=== PATIENT | male | born 1955 | race Caucasian/White ===

== ENCOUNTER 2019-08-31 08:00 | Emergency (ER) | payer OTHER ==
[2019-08-31] MEDS ORDERED: Albuterol/Ipratropium 3.0-0.5 MG/3 ML Neb Soln NEB ONE (08:50)
[2019-08-31 08:56] LABS: ANION GAP 12.2 mmol/L (5-15); CHLORIDE,CL 106 mmol/L (98-115); SODIUM,NA 143 mmol/L (136-145)
--- NOTE | 2019-08-31 08:59 | EDM.PDOC ---
ED HPI GENERAL MEDICAL PROBLEM - General Chief Complaint: Neuro Symptoms/Deficits Stated Complaint: dizzy Time Seen by Provider: 08/31/19 08:50 Source of Information: Reports: Patient History Limitations: Reports: No Limitations - History of Present Illness INITIAL COMMENTS - FREE TEXT/NARRATIVE: Patient is a 63-year-old gentleman who presents to the emergency department via private vehicle for complaint of dizziness. Patient states while having breakfast at local restaurant, had a coughing episode, became dizzy with tunnel vision and felt sweaty. Symptoms lasted approximately 15 minutes. Friends were with him and convinced him to come to the ER. Upon presentation, symptoms completely resolved, and patient states that he feels normal. Patient states he 's had episodes like this previously with coughing fits. Patient does have severe COPD and smokes one pack of cigarettes per day. Patient denies chest pain, nausea, vomiting, abdominal pain, headache, any head injury, or fever. Onset: Sudden Duration: Minutes:, Resolved Prior to Arrival Location: Reports: Head Quality: Reports: Other (Dizzy) Severity: Mild Improves with: Reports: Other (Spontaneously) Worsens with: Reports: None Context: Reports: Other (While at rest) Associated Symptoms: Reports: No Other Symptoms - Related Data Allergies Allergy/AdvReac Type Severity Reaction Status Date / Time No Known Allergies Allergy Verified 09/22/14 09:07 Home Meds: Home Meds Loratadine [Claritin] 10 mg PO QAM 08/31/19 [History] Naproxen Sodium [Aleve] 440 mg PO QAM 08/31/19 [History] Umeclidinium Brm/Vilanterol Tr [Anoro Ellipta 62.5-25 MCG] 1 puff INH QA [History] Social & Family History - Tobacco Use Smoking Status *Q: Current Every Day Smoker Years of Tobacco use: 40 Packs/Tins Daily: 1 - Caffeine Use Caffeine Use: Reports: Coffee, Soda Other Caffeine Use: 3 diet cokes per day - Recreational Drug Use Recreational Drug Use: No ED ROS GENERAL - Review of Systems Review Of Systems: Comprehensive ROS is negative, except as noted in HPI. Constitutional: Reports: No Symptoms HEENT: Reports: No Symptoms Respiratory: Reports: Shortness of Breath (Of chronic nature) Cardiovascular: Reports: Dyspnea on Exertion (Of chronic nature), Lightheadedness. Denies: Chest Pain, Palpitations, Syncope Endocrine: Reports: No Symptoms GI/Abdominal: Reports: No Symptoms : Reports: No Symptoms Musculoskeletal: Reports: Neck Pain (Chronic posterior neck pain) Skin: Reports: No Symptoms Neurological: Reports: Dizziness. Denies: Headache, Numbness, Paresthesia, Seizure, Syncope, Tingling, Trouble Speaking, Difficulty Walking, Weakness, Change in Speech, Gait Disturbance Psychiatric: Reports: No Symptoms Hematologic/Lymphatic: Reports: No Symptoms Immunologic: Reports: No Symptoms ED EXAM, GENERAL - Physical Exam Exam: See Below Exam Limited By: No Limitations General Appearance: Alert, WD/WN, No Apparent Distress Eye Exam: Bilateral Eye: Normal Inspection Ears: Normal External Exam, Normal Canal, Normal TMs Nose: Normal Inspection, Normal Mucosa, No Blood Throat/Mouth: Normal Inspection, Normal Oropharynx, No Airway Compromise Head: Atraumatic, Normocephalic Neck: Normal Inspection, Supple, Full Range of Motion, Tender Lateral (Of chronic nature). No: Lymphadenopathy (L), Lymphadenopathy (R) Respiratory/Chest: No Respiratory Distress EKG INTERPRETATION EKG Date: 08/31/19 Time: 08:30 Rhythm: NSR Rate (Beats/Min): 68 [place]: Normal P-Wave: Present QRS: Normal ST-T: Normal QT: Normal Comparison: NA - No Prior EKG Course - Vital Signs Last Recorded V/S: Last Vital Signs Temp 96.6 F 08/31/19 08:07 Pulse 88 08/31/19 08:35 Resp 18 08/31/19 08:35 BP 111/63 08/31/19 08:35 Pulse Ox 93 L 08/31/19 08:07 Orthostatic Blood Pressure [ 103/65 Standing] Orthostatic Blood Pressure [ 96/60 Sitting] Orthostatic Blood Pressure [ 107/54 Supine] - Orders/Labs/Meds Orders: Active Orders 24 hr Category Date Time Status EKG Documentation Completion [RC] ASDIRECTED Care 08/31/19 08:32 Active RT Aerosol Therapy [RC] ASDIRECTED Care 08/31/19 08:51 Ordered EKG 12 Lead [EK] Routine Ther 08/31/19 08:32 Ordered Labs: Laboratory Tests 08/31/19 08/31/19 Range/Units 08:30 08:30 WBC 7.89 (5.00-10.00) 10^3/uL RBC 4.16 L (4.50-6.00) 10^6/uL Hgb 12.8 L D (13.0-17.0) g/dL Hct 39.3 L (40.0-52.0) % MCV 94.5 H (82.0-92.0) fL MCH 30.8 (27.0-31.0) pg MCHC 32.6 (32.0-36.0) g/dL RDW 13.1 (11.5-14.5) % Plt Count 351 (150-400) 10^3/uL MPV 9.1 (7.4-10.4) fL Immature Gran % (Auto) 0.1 (0.0-5.0) % Neut % (Auto) 74.4 H (50.0-70.0) % Lymph % (Auto) 15.2 L (20.0-40.0) % [place] % (Auto) 5.3 (2.0-8.0) % Eos % (Auto) 4.2 H (1.0-3.0) % Baso % (Auto) 0.8 (0.0-1.0) % Immature Gran # (Auto) 0.01 (0.00-0.50) 10^3/uL Neut # (Auto) 5.87 (2.50-7.00) 10^3/uL Lymph # (Auto) 1.20 (1.00-4.00) 10^3/uL [place] # (Auto) 0.42 (0.10-0.80) 10^3/uL Eos # (Auto) 0.33 H (0.10-0.30) 10^3/uL Baso # (Auto) 0.06 (0.00-0.10) 10^3/uL Sodium 143 (136-145) mmol/L Potassium 3.3 (3.3-5.3) mmol/L Chloride 106 (98-115) mmol/L Carbon Dioxide 28.1 (21.0-32.0) mmol/L Anion Gap 12.2 (5-15) mmol/L BUN 16 (6-25) mg/dL Creatinine 1.28 H (0.51-1.17) mg/dL Est Cr Clr Drug Dosing 59.85 mL/min Estimated GFR (MDRD) 57 mL/min Glucose 137 H (75 - 99) mg/dL Calcium 8.9 (8.7-10.3) mg/dL Total Bilirubin 0.4 (0.2-1.0) mg/dL AST 28 (15-37) U/L ALT 22 (12-78) U/L Alkaline Phosphatase 78 (46-116) IU/L Troponin I < 0.04 (0.00-0.070) ng/mL Total Protein 6.4 (6.4-8.2) g/dL Albumin 2.85 L (3.00-4.80) g/dL Meds: Medications Discontinued Medications Generic Name Dose Route Start Last Admin Trade Name Freq PRN Reason Stop Dose Admin Albuterol/Ipratropium 3 ml 08/31/19 08:50 08/31/19 08:53 Duoneb 3.0-0.5 Mg/3 Ml NEB 08/31/19 08:51 3 ml ONETIME ONE Administration - Radiology Interpretation Free Text/Narrative:: Chest x-ray shows chronic hyperinflation consistent with COPD, no acute cardiopulmonary process - Re-Assessments/Exams Free Text/Narrative Re-Assessment/Exam: 08/31/19 09:11 Patient afebrile, vital signs stable, sat 93% on room air. Feels much better, no dizziness, chest pain, headache, while in ER. EKG and troponin negative. Patient be given prescription for MDI inhaler, albuterol Atrovent on follow-up with Dr. Davis in 2-3 days. 08/31/19 09:15 Departure - Departure Time of Disposition: 09:14 Disposition: Home, Self-Care 01 Condition: Good Clinical Impression: COPD (chronic obstructive pulmonary disease) Qualifiers: COPD type: COPD with acute exacerbation Qualified Code(s): J44.1 - Chronic obstructive pulmonary disease with (acute) exacerbation - Discharge Information Instructions: Chronic Obstructive Pulmonary Disease Exacerbation, [id number] , Cough, Adult, [id number], How to Use a Metered Dose Inhaler Referrals: Shannen Major MD [Primary Care Provider] - Forms: ED Department Discharge Additional Instructions: Follow-up with Dr. Davis in 2-3 days. Return to emergency department sooner if symptoms continue or worsen. - My Orders Last 24 Hours: My Active Orders 08/31/19 08:32 EKG Documentation Completion [RC] ASDIRECTED EKG 12 Lead [EK] Routine 08/31/19 08:51 RT Aerosol Therapy [RC] ASDIRECTED - Assessment/Plan Last 24 Hours: My Active Orders 08/31/19 08:32 EKG Documentation Completion [RC] ASDIRECTED EKG 12 Lead [EK] Routine 08/31/19 08:51 RT Aerosol Therapy [RC] ASDIRECTED Assessment:: COPD Plan: Follow-up at clinic
--- NOTE | 2019-08-31 09:03 | CR ---
[id number] RAD/RAD Chest PA or AP 1V EXAM: RAD Chest PA or AP 1V INDICATION: COUGH, RACING HEART. COMPARISON: November 02, 2018. DISCUSSION: Cardiomediastinal silhouette is normal in size and contour. Chronic obstructive pulmonary disease. No infiltrate, effusion, pneumothorax, or edema. IMPRESSION: No acute findings. Other findings are described above. Obinna Breaux MD 08/31/19 0902 Thank you for allowing us to participate in the care of your patient.
== END 2019-08-31 09:30 | disposition home or self-care (01) ==
LOC: KA.ED 08:00
DX: J44.1 Chronic obstructive pulmonary disease with (acute) exacerbation (principal); F17.210 Nicotine dependence, cigarettes, uncomplicated
CPT/HCPCS: 36415; 71045; 80053; 84484; 85025; 93005; 99284-25; J7620-GY

== ENCOUNTER 2020-07-04 16:37 | Emergency (ER) | payer MEDICARE, OTHER ==
--- NOTE | 2020-07-04 17:16 | EDM.PDOC ---
ED HPI GENERAL MEDICAL PROBLEM - General Stated Complaint: LUMP ON THE SIDE OF THE NECK Time Seen by Provider: 07/04/20 17:00 Source of Information: Reports: Patient History Limitations: Reports: No Limitations - History of Present Illness INITIAL COMMENTS - FREE TEXT/NARRATIVE: Patient presents with tender swelling on jaw and neck that started last night during the night (12+ hours ago). No swelling prior to that. No fever. He does have occasional odontogenic infections. He smokes also. - Related Data Allergies Allergy/AdvReac Type Severity Reaction Status Date / Time No Known Allergies Allergy Verified 07/04/20 17:45 Home Meds: Home Meds Umeclidinium Brm/Vilanterol Tr [Anoro Ellipta 62.5-25 MCG] 1 puff INH QAM 08/31/19 [History] Acetaminophen [Tylenol Extra Strength] 500 mg PO Q6H PRN 07/04/20 [History] Aspirin [Aspirin EC] 81 mg PO DAILY 07/04/20 [History] Budesonide [Budesonide EC] 3 mg PO DAILY 07/04/20 [History] Metoprolol Tartrate [Lopressor] 25 mg PO DAILY 07/04/20 [History] Rivaroxaban [Xarelto] 20 mg PO DAILY 07/04/20 [History] Past Medical History HEENT History: Reports: Impaired Vision, Other (See Below) Other HEENT History: allergies Respiratory History: Reports: Bronchitis, Recurrent, COPD - Past Surgical History HEENT Surgical History: Reports: None Respiratory Surgical History: Reports: None Social & Family History - Caffeine Use Caffeine Use: Reports: Coffee, Soda Other Caffeine Use: 3 diet cokes per day ED ROS ENT - Review of Systems Review Of Systems: See Below Constitutional: Denies: Fever, Chills, Malaise, Weakness HEENT: Denies: Ear Pain, Vision Change Respiratory: Denies: Shortness of Breath, Cough Cardiovascular: Denies: Chest Pain, Lightheadedness, Syncope GI/Abdominal: Denies: Abdominal Pain, Vomiting : Reports: No Symptoms Musculoskeletal: Reports: No Symptoms Skin: Denies: Cyanosis, Jaundice, Mottled, Pallor, Diaphoresis Neurological: Denies: Confusion, Dizziness, Headache, Seizure, Syncope, Trouble Speaking, Difficulty Walking Psychiatric: Denies: Agitation, Anxiety, Confusion Hematologic/Lymphatic: Reports: Easy Bleeding (on Xarelto for A Fib) ED EXAM, ENT - Physical Exam Exam: See Below Exam Limited By: No Limitations General Appearance: Alert, WD/WN, No Apparent Distress Eye Exam: Bilateral Eye: EOMI, Normal Inspection, PERRL Ears: Normal External Exam, Hearing Grossly Normal Nose: Normal Inspection, No Blood Mouth/Throat: Normal Lips, Normal Oropharynx, Other (poor dentition but no obvious abscess or cellulitis). No: Peritonsillar Mass, Pharyngeal Erythema, Throat Swelling, Tongue Swelling, Tonsillar Erythema, Uvular Edema Head: Atraumatic, Normocephalic Neck: Full Range of Motion, Lymphadenopathy (R) (swelling with induration 4 x 8 cm extending along right submandibular bone; this is mildly tender to palpation, no fluctuance or erythema) Respiratory/Chest: No Respiratory Distress, Rhonchi (mild). No: Crackles, Wheezing, Stridor Cardiovascular: Regular Rate, Rhythm (quite regular now inspite of A Fib Dx), No Murmur Back: Normal Inspection, Full Range of Motion Extremities: Normal Inspection, Normal Range of Motion Neurological: Alert, Oriented, Normal Cognition, No Motor/Sensory Deficits Psychiatric: Normal Affect, Normal Mood Skin: Warm, Dry, Intact, Normal Color, No Rash Course - Re-Assessments/Exams Free Text/Narrative Re-Assessment/Exam: 07/04/20 18:03 I discussed findings and possible etiologies with patient, including infection- most likely, and with his smoking history also neoplasm. We discussed CT, for further detail and determination now, but he would like to treat with antibiotic and get that later if necessary. I discussed case with his PCP, Dr. Palma, who feels infection is definitely most likely in conjunction with his dentition. We discussed regimens and will treat with Clindamycin 300 mg q6h x 10 days. Discussed treatment and follow up plan with patient and he was given first doses to cover until Monday morning when he can get to pharmacy. Discharged to home in stable condition. Departure - Departure Time of Disposition: 17:56 Disposition: Home, Self-Care 01 Condition: Good Clinical Impression: Cervical lymphadenitis, Poor dentition - Discharge Information Referrals: Shannen Major MD [Primary Care Provider] - Additional Instructions: Take the antibiotic every 6 hours as directed. Follow up with Dr. Palma in 10 days for recheck. If worsening, recheck with Dr. Palma sooner.
[2020-07-04] MEDS: Clindamycin HCl 150 MG Cap PO SCH (18:02)
[2020-07-04] MEDS: Clindamycin HCl 150 MG Cap PO ONE (18:12)
== END 2020-07-04 18:05 | disposition home or self-care (01) ==
LOC: KA.ED 16:37
DX: I88.9 Nonspecific lymphadenitis, unspecified (principal); K08.9 Disorder of teeth and supporting structures, unspecified; J44.9 Chronic obstructive pulmonary disease, unspecified; Z79.82 Long term (current) use of aspirin; Z79.01 Long term (current) use of anticoagulants; Z79.899 Other long term (current) drug therapy
CPT/HCPCS: 99283; 99284; A9270-GY

== ENCOUNTER 2023-01-05 12:15 | Inpatient (IN) | payer MEDICARE ==
[2023-01-05] MEDS ORDERED: Sodium Chloride 0.9% 10 ML Syringe FLUSH PRN (12:31)
[2023-01-05 13:00] LABS: O2 DELIVERY DEVICE NASAL CANNULA
[2023-01-05 13:04] LABS: ANION GAP 11.2 mmol/L (5-15)
[2023-01-05 13:13] LABS: BICARBONATE,ARTERIAL 28.5 mm/L (22.0-26.0); O2 SATURATION ARTERIAL 97 % (95-98); PCO2 ARTERIAL 30 mm/Hg0 (35-45); PO2 ARTERIAL 78 mm/Hg (80-100)
[2023-01-05 13:40] LABS: CORONAVIRUS COVID-19 NAA NEGATIVE (NEGATIVE); RESPIRATORY SYNCYTIAL VIR NAA NEGATIVE (NEGATIVE)
[2023-01-05] MEDS ORDERED: Sodium Chloride 0.9% 1,000 ML IV ONE (15:40)
[2023-01-05] MEDS: Azithromycin 500 MG in Sodium Chloride 0.9% 250 ML IV SCH (16:33)
[2023-01-05] MEDS: Nicotine 21 MG/24 Hr Patch TRDERM SCH (16:34)
[2023-01-05] MEDS: Acetaminophen 325 MG Tab PO PRN (17:00)
[2023-01-05] MEDS ORDERED: Acetaminophen 325 MG Tab PO PRN (17:10)
[2023-01-05] MEDS ORDERED: Potassium Bicarbonate 25 MEQ Tab.EFF PO ONE (17:30)
[2023-01-05] MEDS: cefTRIAXone 1 GM Vial IVPUSH SCH (17:45)
[2023-01-05] MEDS: Rivaroxaban 10 MG Tab PO SCH (17:45)
[2023-01-05] MEDS: NS + KCl 20mEq/L 1,000 ML IV SCH (18:36)
[2023-01-06] MEDS ORDERED: Albuterol/Ipratropium 3.0-0.5 MG/3 ML Neb Soln NEB PRN (00:36)
[2023-01-06] MEDS: Saliva Substitute Oral Spray 120 ML Bottle MUCMEM PRN (02:43)
[2023-01-06] MEDS: Acetaminophen/HYDROcodone 325-5 MG Tab PO PRN ×3 (06:39→19:16)
[2023-01-06 07:46] LABS: ANION GAP 8.9 mmol/L (5-15)
[2023-01-06] MEDS: Nicotine 21 MG/24 Hr Patch TRDERM SCH (08:29)
[2023-01-06] MEDS: Escitalopram 10 MG Tab PO SCH (08:29)
[2023-01-06] MEDS: Remove Patch - NICOTINE TRDERM SCH (08:29)
[2023-01-06] MEDS: NS + KCl 20mEq/L 1,000 ML IV SCH (08:29)
[2023-01-06] MEDS ORDERED: Sodium Chloride 0.9% 10 ML Syringe FLUSH PRN (09:12)
[2023-01-06] MEDS ORDERED: Potassium Bicarbonate 25 MEQ Tab.EFF PO ONE ×3 (09:15→17:30)
[2023-01-06] MEDS: Albuterol 0.083% 2.5 MG/3 ML Neb Soln NEB SCH ×4 (09:52→20:36)
[2023-01-06] MEDS: Azithromycin 500 MG in Sodium Chloride 0.9% 250 ML IV SCH (16:59)
[2023-01-06] MEDS: cefTRIAXone 1 GM Vial IVPUSH SCH (16:59)
[2023-01-06] MEDS: Rivaroxaban 10 MG Tab PO SCH (17:00)
[2023-01-06] MEDS ORDERED: Sodium Chloride 0.9% 50 ML IV SCH (22:45)
[2023-01-07] MEDS: Albuterol 0.083% 2.5 MG/3 ML Neb Soln NEB SCH ×7 (00:16→20:35)
[2023-01-07] MEDS: Acetaminophen 325 MG Tab PO PRN (00:20)
[2023-01-07] MEDS: Acetaminophen/HYDROcodone 325-5 MG Tab PO PRN ×2 (06:22→12:42)
[2023-01-07] MEDS: Saliva Substitute Oral Spray 120 ML Bottle MUCMEM PRN ×2 (06:26→20:03)
[2023-01-07] MEDS: Tiotropium BR/Olodaterol HCL 4 GM Inhalation Spray 2.5mcg/1 dose; 10 doses INH SCH (08:59)
[2023-01-07] MEDS: Escitalopram 10 MG Tab PO SCH (08:59)
[2023-01-07] MEDS: Remove Patch - NICOTINE TRDERM SCH (09:00)
[2023-01-07] MEDS: Nicotine 21 MG/24 Hr Patch TRDERM SCH (09:00)
[2023-01-07] MEDS: Rosuvastatin 10 MG Tab PO SCH (09:00)
[2023-01-07] MEDS ORDERED: Budesonide 3 MG Cap.ER PO SCH (09:00)
[2023-01-07] MEDS: [UNRECOGNIZED DRUG - REMARK] PO SCH (10:14)
[2023-01-07] MEDS ORDERED: Potassium Bicarbonate 25 MEQ Tab.EFF PO ONE ×2 (12:00→17:00)
[2023-01-07] MEDS: predniSONE 20 MG Tab PO SCH (12:35)
[2023-01-07] MEDS: Azithromycin 500 MG in Sodium Chloride 0.9% 250 ML IV SCH (16:43)
[2023-01-07] MEDS: cefTRIAXone 1 GM Vial IVPUSH SCH (16:43)
[2023-01-07] MEDS: Rivaroxaban 10 MG Tab PO SCH (17:25)
[2023-01-08] MEDS: Albuterol 0.083% 2.5 MG/3 ML Neb Soln NEB SCH ×6 (02:19→20:49)
[2023-01-08] MEDS: Acetaminophen/HYDROcodone 325-5 MG Tab PO PRN ×2 (05:39→20:56)
[2023-01-08 07:34] LABS: ANION GAP 6.5 mmol/L (5-15)
[2023-01-08] MEDS: [UNRECOGNIZED DRUG - REMARK] PO SCH (09:19)
[2023-01-08] MEDS: Escitalopram 10 MG Tab PO SCH (09:19)
[2023-01-08] MEDS: Rosuvastatin 10 MG Tab PO SCH (09:19)
[2023-01-08] MEDS: predniSONE 20 MG Tab PO SCH (09:19)
[2023-01-08] MEDS: Tiotropium BR/Olodaterol HCL 4 GM Inhalation Spray 2.5mcg/1 dose; 10 doses INH SCH (09:20)
[2023-01-08] MEDS: Nicotine 21 MG/24 Hr Patch TRDERM SCH (09:20)
[2023-01-08] MEDS: Remove Patch - NICOTINE TRDERM SCH (09:20)
[2023-01-08] MEDS: cefTRIAXone 1 GM Vial IVPUSH SCH (16:26)
[2023-01-08] MEDS: Azithromycin 500 MG in Sodium Chloride 0.9% 250 ML IV SCH (16:27)
[2023-01-08] MEDS: Rivaroxaban 10 MG Tab PO SCH (17:33)
[2023-01-09] MEDS: Albuterol 0.083% 2.5 MG/3 ML Neb Soln NEB SCH ×4 (02:00→13:32)
[2023-01-09] MEDS: Acetaminophen/HYDROcodone 325-5 MG Tab PO PRN (06:01)
[2023-01-09] MEDS: Tiotropium BR/Olodaterol HCL 4 GM Inhalation Spray 2.5mcg/1 dose; 10 doses INH SCH (08:47)
[2023-01-09] MEDS: Rosuvastatin 10 MG Tab PO SCH (08:48)
[2023-01-09] MEDS: Escitalopram 10 MG Tab PO SCH (08:48)
[2023-01-09] MEDS: [UNRECOGNIZED DRUG - REMARK] PO SCH (08:48)
[2023-01-09] MEDS: predniSONE 20 MG Tab PO SCH (08:49)
[2023-01-09] MEDS: Remove Patch - NICOTINE TRDERM SCH (08:49)
[2023-01-09] MEDS: Nicotine 21 MG/24 Hr Patch TRDERM SCH (08:49)
== END 2023-01-09 14:00 | disposition home or self-care (01) | DRG 190 ==
LOC: KA.MS 12:15 → UNDOADMIN 12:15 → KA.MS 12:31
PROVIDERS: ADMIT Nurse Practitioner Family; ATTEND Nurse Practitioner Family
DX: J44.0 Chronic obstructive pulmonary disease with (acute) lower respiratory infection (principal); J18.9 Pneumonia, unspecified organism; J44.1 Chronic obstructive pulmonary disease with (acute) exacerbation; R09.02 Hypoxemia; E87.6 Hypokalemia; Z20.822 Contact with and (suspected) exposure to COVID-19; I48.91 Unspecified atrial fibrillation; N40.0 Benign prostatic hyperplasia without lower urinary tract symptoms; K52.9 Noninfective gastroenteritis and colitis, unspecified; F17.210 Nicotine dependence, cigarettes, uncomplicated; Z79.82 Long term (current) use of aspirin; Z79.51 Long term (current) use of inhaled steroids; Z79.899 Other long term (current) drug therapy
CPT/HCPCS: 0241U; 36415; 36600; 71046; 80048; 80053; 82803; 83605; 85025; 85027; 87040; 94640; A9270-GY; J0456; J0696; J3480; J3490; J7030; J7050; J7512; J7613-GY; J7620-GY

== ENCOUNTER 2024-01-02 08:31 | Day surgery (SDC) | payer MEDICARE ==
[2024-01-02] MEDS ORDERED: Midazolam 1 MG/ML 2 ML SDV ONE (08:39)
[2024-01-02] MEDS ORDERED: Propofol 200 MG/20 ML SDV ONE (08:39)
[2024-01-02] MEDS ORDERED: Sodium Chloride 0.9% 10 ML Syringe FLUSH PRN (08:45)
[2024-01-02] MEDS: Lactated Ringers 1,000 ML IV SCH (08:50)
== END 2024-01-02 11:30 | disposition home or self-care (01) ==
LOC: KA.SDS 08:31
PROVIDERS: ATTEND Surgery
DX: Z12.11 Encounter for screening for malignant neoplasm of colon (principal); D12.8 Benign neoplasm of rectum; K57.30 Diverticulosis of large intestine without perforation or abscess without bleeding; K64.9 Unspecified hemorrhoids; J43.9 Emphysema, unspecified; F41.9 Anxiety disorder, unspecified; I48.0 Paroxysmal atrial fibrillation; E78.00 Pure hypercholesterolemia, unspecified; F17.200 Nicotine dependence, unspecified, uncomplicated; Z79.82 Long term (current) use of aspirin; Z79.01 Long term (current) use of anticoagulants; Z79.899 Other long term (current) drug therapy
CPT/HCPCS: 00811; J2250; J2704; J3490; J7120